=== PATIENT | male | born 2000 | race Caucasian/White ===

== ENCOUNTER → 2022-06-01 15:17 | Outpatient (CLI) | payer OTHER, SELFPAY ==
--- NOTE | ~2022-06-01 | XR_ITS ---
EXAMINATION: XR chest 2V 06/01/2022 15:57 INDICATION: Chest pain PROCEDURE: 2 view chest COMPARISON: 06/01/2022 FINDINGS: The lungs are clear. The cardiomediastinal silhouette is within normal limits. There are no pleural effusions. There is no pneumothorax suspected. IMPRESSION: 1: NO ACUTE CARDIOPULMONARY DISEASE. Reviewed, dictated and finalized at location A.
--- NOTE | ~2022-06-01 | XR_ITS ---
EXAMINATION: XR ribs RT 2V DATE: 06/01/2022 15:58 INDICATION: Right chest mass. TECHNIQUE: 2 views of the right ribs on 3 radiographs were obtained. COMPARISON: None. FINDINGS: There is no right-sided pneumonia, pleural effusion, or pneumothorax. No rib fracture. IMPRESSION: 1. No chest mass identified. Reviewed, dictated and finalized at location A.
--- NOTE | ~2022-06-01 | XR_ITS ---
EXAMINATION: XR ribs LT 2V DATE: 06/01/2022 15:58 INDICATION: Chest mass. TECHNIQUE: 2 views of the left ribs on 3 radiographs were obtained. COMPARISON: None. FINDINGS: There is no left-sided pneumonia, pleural effusion, or pneumothorax. No rib fracture. IMPRESSION: 1. Normal left ribs. Reviewed, dictated and finalized at location A. IMPRESSION: 1. Normal left ribs.
--- NOTE | ~2022-06-01 | XR_ITS ---
XR abdomen/kub 1V 06/01/2022 15:57 INDICATION: Abdomen pain TECHNIQUE: KUB COMPARISON: None FINDINGS: Bowel gas pattern is normal. Moderate colonic fecal loading. There is no evidence of free a ir, mass, organomegaly, ascites or obstruction. No abnormal calculi are seen. The bones appear inta ct. IMPRESSION: 1: No acute abdominal abnormality identified. Reviewed, dictated and finalized at location A.
== END ==
PROVIDERS: PCP Emergency Medicine; Visit Provider Emergency Medicine
DX: R10.9 Unspecified abdominal pain (principal); R07.89 Other chest pain
CPT/HCPCS: 71046; 71100; 74018

== ENCOUNTER → 2022-07-26 14:18 | Outpatient (CLI) | payer OTHER, SELFPAY ==
--- NOTE | ~2022-07-26 | US_ITS ---
Ultrasound of the right upper quadrant soft tissues Clinical history: Soft tissue mass TECHNIQUE: Real-time sonographic imaging performed of the right upper quadrant abdominal wall at the area of palpable concern. FINDINGS: No discrete solid mass lesion identified. No fluid collection or cystic mass identified. IMPRESSION: No sonographic correlate seen at the area of clinical concern the right upper quadrant. If there is p ersistent concern for soft tissue mass, then consider MR to best evaluate for underlying mass lesion. Reviewed, dictated and finalized at location [] [employer]ATOR IMPRESSION: No sonographic correlate seen at the area of clinical concern the right upper q uadrant. If there is persistent concern for soft tissue mass, then consider MR to best evaluate for underlying mass lesion.
== END ==
PROVIDERS: PCP Surgery; Visit Provider Surgery
DX: R19.01 Right upper quadrant abdominal swelling, mass and lump (principal)
CPT/HCPCS: 76705